=== PATIENT | male | born 1990 | race Two or more races ===

== ENCOUNTER 2020-08-21 14:32 | Outpatient (CLI) | payer OTHER | END 2020-08-21 17:26 | disposition home or self-care (01) | LOC: OFIC 805 14:32 | PROVIDERS: ATTEND Otolaryngology Otology & Neurotology | DX: J35.01 Chronic tonsillitis (principal); J02.8 Acute pharyngitis due to other specified organisms; H61.23 Impacted cerumen, bilateral ==